=== PATIENT | female | born 1995 | race Caucasian/White ===

== ENCOUNTER → 2017-03-27 | Outpatient (CLI) | payer BC ==
[2017-03-27 19:03] LABS: Basophils # (A) 0.1 k/uL (0-0.2); Basophils % (A) 1 %; CH 31.5; CHCM 31.6; Eosinophils # (A) 0.2 k/uL (0-0.7); Eosinophils % (A) 3 %; HCT 40.2 % (34.0-46.0); HDW 2.17; HGB 12.9 gm/dL (11.4-16.0); Luc # (Auto) 0.21; Luc % (Auto) 4; Lymphocytes # (A) 1.8 k/uL (1.0-4.8); Lymphocytes % (A) 29 %; MCH 32.1 pg (25.0-35.0); MCHC 32.1 g/dL (31.0-37.0); MCV 100.2 fL (80.0-100.0); Mean Platelet Volume 8.4; Monocytes # (A) 0.5 k/uL (0-1.0); Monocytes % (A) 8 %; Neutrophils # (A) 3.4 k/uL (1.3-7.7); Neutrophils % (A) 56 %; RBC 4.02 m/uL (3.80-5.40); RDW 12.8 % (11.5-15.5); WBC 6.1 k/uL (3.8-10.6); WBC (Perox) 5.93
[2017-03-27 19:20] LABS: ALT 14 U/L (9-52); AST 32 U/L (14-36); Alkaline Phosphatase 69 U/L (38-126); Anion Gap 14 mmol/L; Blood Urea Nitrogen 12 mg/dL (7-17); Calcium 9.8 mg/dL (8.4-10.2); Carbon Dioxide 22 mmol/L (22-30); Chloride 105 mmol/L (98-107); Glucose 82 mg/dL (74-99); Non-African American GFR(MDRD) >60 (>60 ml/min/1.73 sqM); Sodium 141 mmol/L (137-145); Total Bilirubin 0.7 mg/dL (0.2-1.3); Total Protein 7.6 g/dL (6.3-8.2)
== END | disposition home or self-care (01) ==
LOC: MMGSC 08:55
PROVIDERS: ATTEND Family Medicine
DX: R53.83 Other fatigue (principal)
CPT/HCPCS: 36415; 80053; 84439; 84443; 85025

== ENCOUNTER → 2017-04-17 | Outpatient (CLI) | payer BC | END | disposition home or self-care (01) | LOC: MMGSC 11:28 | PROVIDERS: ATTEND Family Medicine | DX: Z13.9 Encounter for screening, unspecified (principal) | CPT/HCPCS: 87491; 87591 ==

== ENCOUNTER → 2018-10-20 | Outpatient (CLI) | payer OTHER | END | disposition home or self-care (01) | LOC: LABWHC1 16:21 | PROVIDERS: ATTEND Surgery | DX: Z52.4 Kidney donor (principal) | CPT/HCPCS: 86900; 86901 ==

== ENCOUNTER 2020-05-27 11:13 | Emergency (ER) | payer BC ==
[2020-05-27 11:21] VITALS: RESP 18; TEMP 98.3
[2020-05-27] MEDS ORDERED: KETOROLAC 15 MG/ML 1 ML VIAL IVP STA (11:58)
--- NOTE | 2020-05-27 12:04 | ED ---
Chest Pain HPI - General Chief Complaint: Chest Pain Stated Complaint: Chest heaviness Time Seen by Provider: 05/27/20 11:15 Source: patient, RN notes reviewed Mode of arrival: ambulatory Limitations: no limitations - History of Present Illness Initial Comments: 25-year-old female presents emergency Department chief complaint of chest discomfort. Patient states it has been ongoing for last 4 days. He does seem to wax and wane. Patient states that she felt like it was just related to anxiety at first. She states that she does not feel short of breath but states it just seems to cause discomfort when she takes deep breath . Patient denies any fevers or chills no cough is congestion. Patient had difficult with her seasonal ALLERGIES approximately or 3 weeks ago. She has appointment abdominal pain no GERD type symptoms denies any chance no history of PE or DVT no leg pain no leg swelling noted. - Related Data Home Medications Medication Instructions Recorded Confirmed Acetaminophen [Tylenol] 325 mg PO ONCE PRN 05/27/20 05/27/20 Allergies Allergy/AdvReac Type Severity Reaction Status Date / Time No Known Allergies Allergy Verified 05/27/20 12:58 Review of Systems ROS Statement: Those systems with pertinent positive or pertinent negative responses have been documented in the HPI. ROS Other: All systems not noted in ROS Statement are negative. EKG Findings - EKG Comments: EKG Findings:: EKG performed at 11:37 normal sinus rhythm with a rate of 63 IA 142 QRS 100 QT/QTC 400/409 Past Medical History Past Medical History: Asthma History of Any Multi-Drug Resistant Organisms: None Reported Additional Past Surgical History / Comment(s): ear tubes Past Psychological History: No Psychological Hx Reported Smoking Status: Never smoker Past Alcohol Use History: None Reported Past Drug Use History: None Reported General Exam Limitations: no limitations General appearance: alert, in no apparent distress Head exam: Present: atraumatic, normocephalic, normal inspection Eye exam: Present: normal appearance, PERRL, EOMI. Absent: scleral icterus, conjunctival injection, periorbital swelling ENT exam: Present: normal exam, normal oropharynx, mucous membranes moist Neck exam: Present: normal inspection, full ROM. Absent: tenderness, meningismus, lymphadenopathy Respiratory exam: Present: normal lung sounds bilaterally. Absent: respiratory distress, wheezes, rales, rhonchi, stridor Cardiovascular Exam: Present: regular rate, normal rhythm, normal heart sounds. Absent: systolic murmur, diastolic murmur, rubs, gallop, clicks GI/Abdominal exam: Present: soft, normal bowel sounds. Absent: distended, tenderness, guarding, rebound, rigid Back exam: Absent: CVA tenderness (R), CVA tenderness (L) Neurological exam: Present: alert, oriented X3 Skin exam: Present: warm, dry, intact, normal color. Absent: rash Course Vital Signs 05/27/20 05/27/20 11:18 12:08 Temperature 98.3 F Pulse Rate 72 61 Respiratory 18 18 Rate Blood Pressure 129/83 113/71 O2 Sat by Pulse 99 99 Oximetry Chest Pain MDM - MDM X-ray, labs reviewed no acute abnormality. Patient symptoms more consistent with chest wall inflammation costochondritis. Patient did have some improvement after Toradol. Patient be discharged in stable condition return parameters were discussed. Disposition Clinical Impression: Chest wall pain Disposition: HOME SELF-CARE Condition: Stable Instructions (If sedation given, give patient instructions): Costochondritis (ED), Chest Pain (ED) Additional Instructions: Please return to the Emergency Department if symptoms worsen or any other concerns. Is patient prescribed a controlled substance at d/c from ED?: No Referrals: Judy Vizcaino MD [Primary Care Provider] - 1-2 days Time of Disposition: 13:17
[2020-05-27 12:19] LABS: Basophils % (A) 1 %; Eosinophils # (A) 0.1 k/uL (0-0.7); Eosinophils % (A) 2 %; HCT 41.1 % (34.0-46.0); HGB 13.7 gm/dL (11.4-16.0); Lymphocytes # (A) 1.7 k/uL (1.0-4.8); Lymphocytes % (A) 32 %; MCH 31.7 pg (25.0-35.0); MCHC 33.3 g/dL (31.0-37.0); MCV 95.3 fL (80.0-100.0); Mean Platelet Volume 7.2; Monocytes # (A) 0.4 k/uL (0-1.0); Monocytes % (A) 7 %; Neutrophils % (A) 55 %; Platelet Count 300 k/uL (150-450); RBC 4.31 m/uL (3.80-5.40); RDW 11.7 % (11.5-15.5); WBC 5.4 k/uL (3.8-10.6)
[2020-05-27 12:27] LABS: ALT 16 U/L (4-34); AST 23 U/L (14-36); African American GFR (CKD) >90 (>60 ml/min/1.73 sqM); Albumin 5.1 g/dL (3.5-5.0); Alkaline Phosphatase 57 U/L (38-126); Anion Gap 10 mmol/L; Blood Urea Nitrogen 16 mg/dL (7-17); Calcium 10.2 mg/dL (8.4-10.2); Carbon Dioxide 25 mmol/L (22-30); Chloride 106 mmol/L (98-107); Glucose 94 mg/dL (74-99); Magnesium 1.9 mg/dL (1.6-2.3); Non-African American GFR(CKD) >90 (>60 ml/min/1.73 sqM); Sodium 141 mmol/L (137-145); Total Bilirubin 0.8 mg/dL (0.2-1.3); Total Protein 8.5 g/dL (6.3-8.2)
[2020-05-27 12:56] LABS: D-Dimer 0.18 mg/L FEU (<0.60); Partial Thromboplastin Time 25.2 sec (22.0-30.0); Prothrombin Time 10.4 sec (9.0-12.0)
--- NOTE | 2020-05-27 12:57 | XR ---
EXAMINATION TYPE: XR chest 2V DATE OF EXAM: 05/27/2020 COMPARISON: Chest x-ray November 11, 2008. HISTORY: Chest pain for 3 days. TECHNIQUE: Frontal and lateral views of the chest are obtained. FINDINGS: Overlying EKG leads are in current study. There is no suspicious new focal air space opaci ty, pleural effusion, or pneumothorax seen. The cardiac silhouette size remains within normal limits . The osseous structures are intact. IMPRESSION: No acute cardiopulmonary process currently.
[2020-05-27 13:33] VITALS: BP 112/64; PULSE 57
== END 2020-05-27 13:35 | disposition home or self-care (01) ==
LOC: EC 11:13
DX: R07.89 Other chest pain (principal)
CPT/HCPCS: 36415; 71046; 80053; 81025; 83690; 83735; 84484; 85025; 85379; 85610; 85730; 93005; 99285

== ENCOUNTER → 2020-08-25 | Outpatient (CLI) | payer BC | END | disposition home or self-care (01) | LOC: LABWHC1 13:05 | PROVIDERS: ATTEND Family Medicine | DX: R50.9 Fever, unspecified (principal); R05 Cough; R52 Pain, unspecified | CPT/HCPCS: U0003; C9803 ==

== ENCOUNTER → 2020-10-03 | Outpatient (CLI) | payer BC ==
--- NOTE | 2020-10-03 15:48 | ECHOF ---
Referral Reason:R19.8 MEASUREMENTS -------- HEIGHT: 172.7 cm WEIGHT: 79.4 kg BP: IVSd: 0.8 cm (0.6 - 1.1) LVIDd: 4.5 cm (3.9 - 5.3) LVPWd: 1.2 cm (0.6 - 1.1) IVSs: 1.1 cm LVIDs: 3.3 cm LVPWs: 1.5 cm LAESV Index (A-L): 20.39 ml/m Ao Diam: 2.8 cm (2.0 - 3.7) AV Cusp: 1.3 cm (1.5 - 2.6) EPSS: 0.5 cm MV E Alexis: 0.88 m/s MV DecT: 214 ms MV A Alexis: 0.53 m/s MV E/A Ratio: 1.65 RAP: 5.00 mmHg RVSP: 16.07 mmHg MV EF SLOPE: 126.59 mm/s (70 - 150) MV EXCURSION: 23.08 mm (> 18.000) FINDINGS -------- Sinus rhythm. This was a technically good study. LV size, wall thickness and systolic function are normal, with an EF greater than 55%. The left monse tricular size is normal. The right ventricle is normal in size. Normal LA size by volume 22+/-6 ml/m2. The right atrial size is normal. The aortic valve is trileaflet, and appears structurally normal. No aortic stenosis or regurgitation. Mild mitral regurgitation is present. Mild tricuspid regurgitation present. Right ventricular systolic pressure is normal at < 35 mmHg. There is no pulmonic regurgitation present. There is no pericardial effusion. CONCLUSIONS -------- 1. LV size, wall thickness and systolic function are normal, with an EF greater than 55%. 2. The left ventricular size is normal. 3. The right ventricle is normal in size. 4. Normal LA size by volume 22+/-6 ml/m2. 5. The right atrial size is normal. 6. The aortic valve is trileaflet, and appears structurally normal. No aortic stenosis or regurgitati on. 7. Mild mitral regurgitation is present. 8. Mild tricuspid regurgitation present. 9. There is no pericardial effusion. DIRECTOR OF MARKET INTELLIGENCE: Leela Bullock RDCS
== END | disposition home or self-care (01) ==
LOC: RADECHMAIN 08:48
PROVIDERS: ATTEND Family Medicine
DX: I08.1 Rheumatic disorders of both mitral and tricuspid valves (principal)
CPT/HCPCS: 93306

== ENCOUNTER 2020-11-24 16:50 | Emergency (ER) | payer BC ==
[2020-11-24 17:11] VITALS: RESP 18
--- NOTE | 2020-11-24 19:00 | ED ---
Skin/Abscess/FB HPI - General Source: patient Mode of arrival: ambulatory Limitations: no limitations <Lauryn Art - Last Filed: 11/25/20 16:55> <Ilene Dueñas - Last Filed: 11/25/20 19:50> - General Chief complaint: Skin/Abscess/Foreign Body Stated complaint: Poss foreign obj in throat Time Seen by Provider: 11/24/20 17:35 - History of Present Illness Initial comments: Patient is a 25-year-old female with history of anxiety, presenting to the emergency Department with complaints of feeling like something could be stuck in her throat. Patient states she was seen by her doctor a few days ago, thought that she had some increase in her tonsils however her strep test was negative and her symptoms seemed to decrease. She states she's been gargling with salt water a lot. She states she was seen again yesterday for similar issue by her exam was normal. She's had no fevers or chills, no coughing. She states her throat does not hurt. She states when she attempts to eat food she feels like something is getting stuck in the middle of her chest. She is able tolerate fluids without difficulty. She has no further complaints at this time. Upon arrival to the ER her vitals are stable. (Lauryn Art) - Related Data Home Medications Medication Instructions Recorded Confirmed Acetaminophen [Tylenol] 325 mg PO ONCE PRN 05/27/20 05/27/20 Allergies Allergy/AdvReac Type Severity Reaction Status Date / Time No Known Allergies Allergy Verified 11/24/20 17:08 Review of Systems ROS Other: All systems not noted in ROS Statement are negative. <Lauryn Art - Last Filed: 11/25/20 16:55> ROS Other: All systems not noted in ROS Statement are negative. <Ilene Dueñas - Last Filed: 11/25/20 19:50> ROS Statement: Those systems with pertinent positive or pertinent negative responses have been documented in the HPI. Past Medical History Past Medical History: Asthma History of Any Multi-Drug Resistant Organisms: None Reported Additional Past Surgical History / Comment(s): ear tubes Past Psychological History: No Psychological Hx Reported Smoking Status: Never smoker Past Alcohol Use History: None Reported Past Drug Use History: None Reported <Lauryn Art - Last Filed: 11/25/20 16:55> General Exam Limitations: no limitations <Lauryn Art - Last Filed: 11/25/20 16:55> - General Exam Comments Initial Comments: GENERAL: Patient is well-developed and well-nourished. Patient is nontoxic and in no acute distress, patient is very anxious. HEAD: Atraumatic, normocephalic. EYES: Pupils equal round and reactive to light, extraocular movements intact, sclera anicteric, conjunctiva are normal. Eyelids were unremarkable. ENT: Nares patent, oropharynx clear without exudates. Moist mucous membranes. NECK: Normal range of motion, supple without lymphadenopathy or JVD. LUNGS: Unlabored respirations. Breath sounds clear to auscultation bilaterally and equal. No wheezes rales or rhonchi. HEART: Regular rate and rhythm without murmurs, rubs or gallops. ABDOMEN: Soft, nontender, normoactive bowel sounds. No guarding, no rebound. No masses appreciated. : Deferred MUSCULOSKELETAL: Normal extremities with adequate strength and normal range of motion, no pitting or edema. No clubbing or cyanosis. NEUROLOGICAL: Patient is alert and oriented x 3. Normal speech, normal gait. PSYCH: Normal mood, normal affect. SKIN: Warm, Dry, normal turgor, no rashes or lesions noted. (Lauryn Art) Course Vital Signs 11/24/20 11/24/20 17:08 19:43 Temperature 98.3 F 98.4 F Pulse Rate 91 86 Respiratory 18 18 Rate Blood Pressure 128/80 127/78 O2 Sat by Pulse 100 98 Oximetry Medical Decision Making <Lauryn Art - Last Filed: 11/25/20 16:55> <Ilene Dueñas - Last Filed: 11/25/20 19:50> - Medical Decision Making Patient is a 25-year-old female here with sensation of something is stuck in her distal portion of her throat, esophagus. Her vital signs are stable, she is afebrile, her exam is unremarkable. X-ray soft tissue of the neck and chest x- ray show no acute abnormalities. Discussed these findings with the patient. Her symptoms could be related to anxiety, she does have a wedding coming up and has been very anxious about it. She can follow up with her PCP, to give her ENT referral she feels like the symptoms continue. She is stable for discharge and she is in agreement with this plan of care. Case discussed with Dr. Dueñas. (Lauryn Art) I was available for consultation in the emergency department. The history and physical exam were done by the midlevel provider. I was consulted for this patients care. I reviewed the case with the midlevel provider and based on their presentation of the patient, I agree with the assessment, medical decision making and plan of care as documented. Chart was dictated using [employer] dictation software. Attempts were made to correct any dictation errors however some typographical errors may persist. Patient was seen during a national state of emergency due to the Covid-19 pandemic. (Ilene Dueñas) Disposition Is patient prescribed a controlled substance at d/c from ED?: No <Lauryn Art - Last Filed: 11/25/20 16:55> <Ilene Dueñas - Last Filed: 11/25/20 19:50> Clinical Impression: Throat tightness Disposition: HOME SELF-CARE Condition: Stable Instructions (If sedation given, give patient instructions): Normal Exam (ED) Additional Instructions: Please return to the Emergency Department if symptoms worsen or any other concerns. Follow-up with ENT if symptoms persist. Referrals: Judy Vizcaino MD [Primary Care Provider] - 1-2 days Bartolo Gooden MD [STAFF PHYSICIAN] - 1-2 days
--- NOTE | 2020-11-24 19:43 | XR ---
EXAMINATION TYPE: XR chest 1V DATE OF EXAM: 11/24/2020 COMPARISON: 09/26/2020. HISTORY: Recent choking incident. TECHNIQUE: Single frontal view of the chest is obtained. FINDINGS: There is no focal air space opacity, pleural effusion, or pneumothorax seen. The cardiac silhouette size is within normal limits. The osseous structures are intact. IMPRESSION: No acute process.
[2020-11-24 19:45] VITALS: BP 127/78; PULSE 86; TEMP 98.4
--- NOTE | 2020-11-24 19:46 | XR ---
RESULT: HISTORY: possible foriegn body TECHNIQUE: 2 views of the neck soft tissues were obtained. COMPARISON: None. FINDINGS: There is overlapping soft tissues about the thyroid cartilage on the lateral view, limiting evaluatio n at that level. Otherwise no definite radiopaque foreign body. The visualized airways are otherwise unremarkable. No acute osseous abnormality. IMPRESSION: No definite radiopaque foreign body within the limitations of the study.
== END 2020-11-24 19:43 | disposition home or self-care (01) ==
LOC: EC 16:50
DX: R09.89 Other specified symptoms and signs involving the circulatory and respiratory systems (principal)
CPT/HCPCS: 70360; 71045; 99283

== ENCOUNTER → 2021-11-27 | Outpatient (CLI) | payer BC ==
--- NOTE | 2021-11-27 07:51 | US ---
EXAMINATION TYPE: US pelvic complete DATE OF EXAM: 11/27/2021 COMPARISON: NONE CLINICAL HISTORY: N94.6 DYSMENORRHEA. Pt states painful cramping near/during menses TECHNIQUE: Transvaginal (TV). Transvaginal sonographic images of the pelvis were acquired. Date of LMP: 11/02/2021 EXAM MEASUREMENTS: Uterus: 8.2 x 4.5 x 5.0 cm Endometrial Stripe: 1.4 cm Right Ovary: 4.3 x 4.7 x 4.1 cm Left Ovary: 3.1 x 2.9 x 2.3 cm 1. Uterus: Retroverted Heterogeneous 2. Endometrium: upper limits of normal for thickness 3. Right Ovary: Complex lesion= 4.1 x 3.3 x 3.7 cm 4. Left Ovary: wnl 5. Bilateral Adnexa: wnl 6. Posterior cul-de-sac: Small amount of free fluid IMPRESSION: 1. Complex lesion right ovary likely reflects a hemorrhagic cyst. This could be confirmed with follow -up study in 6 weeks.
== END ==
LOC: RADUSWWP 07:05
PROVIDERS: ATTEND Obstetrics & Gynecology
DX: N83.8 Other noninflammatory disorders of ovary, fallopian tube and broad ligament (principal)
CPT/HCPCS: 76830